=== PATIENT | female | born 1985 | race African-American/Black ===

== ENCOUNTER 2019-06-18 19:39 | Emergency (ER) | payer SELFPAY ==
[2019-06-18] MEDS ORDERED: Lidocaine 1% (PF) 30 ML VIAL ONE (20:59)
== END 2019-06-18 22:05 | disposition home or self-care (01) ==
LOC: ERS 19:39
DX: N34.0 Urethral abscess (principal); F17.290 Nicotine dependence, other tobacco product, uncomplicated
CPT/HCPCS: 56405; 87070; 87205; J2001